=== PATIENT | male | born 1975 | race Caucasian/White ===

== ENCOUNTER 2021-12-09 11:21 | Inpatient (IN) | payer SELFPAY ==
[~2021-12-09] VITALS: Ht 190.5 cm; Wt 93.0 kg
[2021-12-09 12:03] LABS: HEMOGLOBIN 17.9 gm/dl (14.0-17.5); RED BLOOD COUNT 5.36 M/UL (4.20-5.50); WHITE BLOOD COUNT 16.2 K/UL (4.5-11.0)
[2021-12-09] MEDS ORDERED: ALLOPURINOL300 MG PO (16:25)
[2021-12-09] MEDS ORDERED: LISINOPRIL20 MG PO (16:25)
[2021-12-09] MEDS ORDERED: OSTEO BI-FLEX1 EACH PO (16:30)
[2021-12-10 08:36] LABS: HEMOGLOBIN 15.4 gm/dl (14.0-17.5); RED BLOOD COUNT 4.66 M/UL (4.20-5.50); WHITE BLOOD COUNT 8.5 K/UL (4.5-11.0)
[2021-12-10] MEDS ORDERED: TAB-A-VITE TA400 MC1 PO (11:21)
[2021-12-10] MEDS ORDERED: VITAMIN B-1100 M1 PO (11:21)
[2021-12-10 11:57] LABS: BUN/CREATININE RATIO 17 (0-10)
== END 2021-12-10 14:30 | disposition home or self-care (01) | DRG 683 ==
LOC: ER1 11:21 → CDU 13:44 → MED SURG 4 17:23
PROVIDERS: Emergency Medicine; Physician Assistant; ADMIT Internal Medicine
DX: N17.9 Acute kidney failure, unspecified (principal); E87.1 Hypo-osmolality and hyponatremia; M62.82 Rhabdomyolysis; E87.2 Acidosis; H70.90 Unspecified mastoiditis, unspecified ear; I10 Essential (primary) hypertension; R94.5 Abnormal results of liver function studies; Z20.822 Contact with and (suspected) exposure to COVID-19; D75.1 Secondary polycythemia; F17.200 Nicotine dependence, unspecified, uncomplicated; R74.01 Elevation of levels of liver transaminase levels; F10.10 Alcohol abuse, uncomplicated; I95.9 Hypotension, unspecified; T50.4X5A Adverse effect of drugs affecting uric acid metabolism, initial encounter; E86.0 Dehydration; M10.9 Gout, unspecified; Z98.890 Other specified postprocedural states; Z79.899 Other long term (current) drug therapy; Z71.6 Tobacco abuse counseling
CPT/HCPCS: 36415; 70450; 71045; 80048; 80053; 81001; 82550; 82553; 83605; 83735; 84484; 85025; 85379; 87040; 87086; 93005; 96374; 99285; J0696; J7030; U0002